=== PATIENT | female | born 1965 | race Caucasian/White ===

== ENCOUNTER → 2018-07-07 | Outpatient (CLI) | payer OTHER | LOC: RAD 09:28 | PROVIDERS: ATTEND Internal Medicine | DX: Z12.31 Encounter for screening mammogram for malignant neoplasm of breast (principal) | CPT/HCPCS: 77067 ==

== ENCOUNTER → 2019-10-19 | Outpatient (CLI) | payer OTHER ==
--- NOTE | 2019-10-19 16:49 | Diagnostic Imaging Report ---
CLINICAL INDICATION: Patient with pain in back down left leg. EXAM: X-ray of the lumbar spine, three views. COMPARISON: None. FINDINGS: There is no acute lumbar spine fracture. There is grade 1 anterolisthesis of L3 on L4 and L4 on L5. There is no pars defect seen and is likely degenerative. There is mildly hypertrophic spurs involving the mid and lower lumbar spine and lower lumbar spine facet arthropathy. Sacroiliac joints show no significant abnormality. There is sclerosis of the symphysis pubis region. IMPRESSION: 1: There is multilevel lumbar spine degenerative disease with no acute fracture. 2: There is grade 1 anterolisthesis of L3 on L4 and L4 on L5 which is likely degenerative with no pars defect seen. Dictated by: Dictated on workstation # [id number]
== END ==
LOC: RAD 16:03
PROVIDERS: ATTEND Nurse Practitioner
DX: M47.816 Spondylosis without myelopathy or radiculopathy, lumbar region (principal)
CPT/HCPCS: 72100

== ENCOUNTER → 2022-10-21 | Outpatient (CLI) | payer OTHER ==
--- NOTE | 2022-10-21 15:58 | Diagnostic Imaging Report ---
Indication: Routine screening. Comparison is made with prior mammogram from 07/07/2018. 2-D and 3-D bilateral screening mammography was performed with CAD. Scattered fibroglandular densities are identified bilaterally. The parenchymal pattern is stable. No mass or malignant-appearing microcalcifications are seen. Axillae are unremarkable. Benign nodule posterior right breast on the MLO view is stable and most consistent with intraparenchymal lymph node. Axillae are unremarkable. IMPRESSION: BI-RADS Category 2 No mammographic features suspicious for malignancy are identified. ACR BI-RADS Category 2: Benign findings. Result letter will be mailed to the patient. Note: At least 10% of breast cancer is not imaged by mammography. Dictated by: Dictated on workstation # [id number]
== END ==
LOC: RAD 11:15
PROVIDERS: ATTEND Nurse Practitioner Family
DX: Z12.31 Encounter for screening mammogram for malignant neoplasm of breast (principal)
CPT/HCPCS: 77063; 77067